=== PATIENT | male | born 1970 | race Caucasian/White ===

== ENCOUNTER 2024-01-31 08:11 | Outpatient (AMB) | payer OTHER, SELFPAY ==
--- NOTE | 2024-01-31 08:14 | AM.OFFWIN_ITS ---
Intake Vital Signs 01/31/24 08:15 Height 5 ft 7 in Weight 180 lb BMI 28.2 BP 150/90 H Blood Pressure Location Lt brachial Position Sitting Pulse 81 Pulse Source Pulse Oximeter Temp 98.3 F Temp Source Oral Pulse Oximetry (%) 93 Oxygen Delivery Method Room Air Intake Visit Reasons: EP ?Shingles Intake Note: pt is here for possible shingles located on left shoulder/neck area, patient also has concern of right big toe possible toe nail infection and requesting chantix for smoking Patient Tobacco Use Status: Current everyday Tobacco user Allergies No Known Allergies Allergy (Verified 01/31/24 08:17) paroxetine [Paxil] Adverse Reaction (Unknown, Verified 01/31/24 08:17) constipation Do you need a note to return to daycare/school/sports/work: Yes HPI HPI Comments History of Present Illness Details Patient is a 54-year-old male complaining of 6 days of ?skin pain? and a rash on his left shoulder. He states the vesicles started on his left shoulder and now are creeping up his left side of his neck. He states they are a little bit itchy and painful. He denies any fevers or bug bites. He also is looking for medication to help him quit smoking with Chantix and treat the fungus on his right big toenail. [facility] Social History Patient Tobacco Use Status: Current everyday Tobacco user Review of Systems Const All systems reviewed & are unremarkable except as noted in HPI and below Physical Exam Vital Signs: Last Vital Signs Temp 98.3 F 01/31/24 08:15 Pulse 81 01/31/24 08:15 BP 150/90 H 01/31/24 08:15 Pulse Ox 93 01/31/24 08:15 Oxygen Delivery Method Room Air 01/31/24 08:15 BMI result Body Mass Index 28.2 Const General: cooperative, healthy appearing, comfortable, no acute distress and well developed Orientation/consciousness: patient oriented x3 Limitations: no limitations HEENT Head: Yes normal to inspection Ears: hearing grossly normal bilaterally, external ears normal, TM normal on the left and EAC's normal Eyes General: appearance normal, both eyes and all related structures Neck Neck: Yes normal visual inspection and Yes full ROM Skin Other: small patch of fluid filled Erythematous based vesicles on left neck, patchy cluster on the left shoulder that are still erythematous but flat Neuro General: patient oriented x3 Extrem General: Yes normal to inspection Assessment & Plan Assessment & Plan (1) Shingles: Code(s): B02.9 - Zoster without complications Qualifiers: Herpes zoster complications: without complications Qualified Code(s): B02.9 - Zoster without complications Plan: Discussed risks and benefits of prednisone. Advised he could have post herpetic neuralgia and to follow up with us if the nerve pain does linger so we can try some gabapentin. Recommended following up with primary care doctor for management of his toe fungus and 4 Chantix prescription. Plan see above Medications: New prednisone 40 mg (2 x 20 mg) PO DAILY 10 tabs 0RF Coding Level of Care Code Est Pt Level 3 (69785) Diagnoses Herpes zoster without complication B02.9 Herpes zoster complications: without complications
[2024-01-31 08:15] VITALS: BP 150/90; PULSE 81; TEMP 36.8; O2SAT 93; BMI 28.2
== END 2024-01-31 09:13 | disposition home or self-care (01) ==
PROVIDERS: PCP Nurse Practitioner Family; Visit Provider Physician Assistant
DX: B02.9 Zoster without complications (principal)
CPT/HCPCS: 99213